=== PATIENT | male | born 1960 ===

== ENCOUNTER 2019-08-04 21:32 | Inpatient (IN) ==
[2019-08-04] MEDS ORDERED: ONDANSETRON 4 MG/2 ML VIAL IV PRN (23:45)
[2019-08-04] MEDS ORDERED: GLUCAGON 1 MG VIAL IM PRN (23:45)
[2019-08-04] MEDS ORDERED: DEXTROSE 10% 250 ML BAG IV PRN (23:45)
[2019-08-04] MEDS ORDERED: LORazepam 2 MG/1 ML VIAL IV PRN (23:49)
[2019-08-04] MEDS ORDERED: HYDROmorphone 2 MG/1 ML VIAL IV PRN (23:50)
[2019-08-05] MEDS: SODIUM CHLORIDE 0.9% 1,000 ML IV SCH ×3 (01:15→17:37)
[2019-08-05 06:43] LABS: Basophils % 0.3 % (0.0-0.8); Eosinophils % 0.5 % (0.00-10.9); Hematocrit 38.2 VOL% (42.0-52.0); Hemoglobin 12.9 GM/DL (14.0-18.0); Immature Granulocytes Absolute 0.16 #; Lymphocytes # 0.5 10*3/uL (1.4-4.0); Lymphocytes % 6.3 % (21.2-54.2); Mean Corpuscular HGB Conc 33.8 GM/DL (32-36); Mean Corpuscular Volume 94.6 FL (87-102); Mean Platelet Volume 10.7 FL (9.6-12.0); Monocytes % 3.4 % (1.7-12.7); Neutrophils % 87.5 % (38.7-73.9); Platelet Count 80 T/CUMM (130-400); Red Blood Count 4.04 MC/CUMM (3.8-5.5); Red Cell Distribution Width 14.6 % (9.3-17.3)
[2019-08-05 07:06] LABS: Band Neutrophils 1 % (0-10); Hypochromasia Slight; Lymphocytes 3 % (20-55); Platelet Estimate Decreased; Segmented Neutrophils 96 % (50-85); Total Cells Counted 100
[2019-08-05 07:18] LABS: Albumin 2.7 G/DL (3.4-5.0); Bilirubin,Total 2.3 MG/DL (0.2-1.0); Calcium 7.6 MG/DL (8.5-10.1); Osmolality,Calculated 262.2 MOS/KG (273-304); Total Protein 6.5 G/DL (6.4-8.3)
[2019-08-05] MEDS ORDERED: ENOXAPARIN 30 MG/0.3 ML SYRINGE SUBCUT SCH (09:00)
[2019-08-05] MEDS: MULTIVITAMIN (CENTRUM) TABLET PO SCH (09:26)
[2019-08-05] MEDS: FOLIC ACID 1 MG TABLET PO SCH (09:27)
[2019-08-05] MEDS: THIAMINE 100 MG TABLET PO SCH (09:27)
[2019-08-05 12:08] LABS: Hepatitis B Core IgM Quant 0.34 Index; Hepatitis B Surface Ag Quant < 0.10 Index; Hepatitis B Surface Ag Result Negative (Negative); Hepatitis C Virus Ab Quant 0.46 Index; Hepatitis C Virus Ab Result Negative (Negative)
[2019-08-06] MEDS: SODIUM CHLORIDE 0.9% 1,000 ML IV SCH ×2 (01:29→09:56)
[2019-08-06 05:30] LABS: Basophils % 0.7 % (0.0-0.8); Eosinophils # 0.2 10*3/uL (0.0-0.87); Eosinophils % 2.6 % (0.00-10.9); Hematocrit 34.2 VOL% (42.0-52.0); Hemoglobin 11.9 GM/DL (14.0-18.0); Immature Granulocytes % 2.1 %; Immature Granulocytes Absolute 0.12 #; Lymphocytes # 0.9 10*3/uL (1.4-4.0); Lymphocytes % 14.9 % (21.2-54.2); Mean Corpuscular HGB Conc 34.8 GM/DL (32-36); Mean Platelet Volume 10.3 FL (9.6-12.0); Monocytes % 10.5 % (1.7-12.7); Neutrophils % 69.2 % (38.7-73.9); Platelet Count 81 T/CUMM (130-400); Red Blood Count 3.64 MC/CUMM (3.8-5.5); White Blood Count 5.8 T/CUMM (4-12)
[2019-08-06 05:51] LABS: Albumin 2.5 G/DL (3.4-5.0); Bilirubin,Total 2.9 MG/DL (0.2-1.0); Calcium 7.8 MG/DL (8.5-10.1); Osmolality,Calculated 276.7 MOS/KG (273-304); Total Protein 6.3 G/DL (6.4-8.3)
[2019-08-06 06:23] LABS: Hypochromasia 1+; Lymphocytes 9 % (20-55); Nucleated Red Blood Cells 1 (0-5); Platelet Estimate Decreased; Segmented Neutrophils 84 % (50-85); Total Cells Counted 100
[2019-08-06] MEDS: MULTIVITAMIN (CENTRUM) TABLET PO SCH (12:51)
[2019-08-06] MEDS: FOLIC ACID 1 MG TABLET PO SCH (12:52)
[2019-08-06] MEDS: THIAMINE 100 MG TABLET PO SCH (12:52)
[2019-08-06 16:00] VITALS: BP 128/70
== END 2019-08-06 18:45 | disposition home or self-care (01) | DRG 441 ==
LOC: SUATTDRO 23:42 → N.3E 23:42
PROVIDERS: ADMIT Internal Medicine; ATTEND Internal Medicine